=== PATIENT | female | born 1985 | race Caucasian/White ===

== ENCOUNTER 2021-06-25 10:05 | Outpatient (CLI) | payer OTHER, SELFPAY | END 2021-06-25 23:59 | disposition home or self-care (01) | PROVIDERS: Referring Provider Physician Assistant; Visit Provider Physician Assistant | DX: J02.9 Acute pharyngitis, unspecified (principal) | CPT/HCPCS: 87081 ==

== ENCOUNTER → 2023-01-10 | Outpatient (CLI) | payer OTHER, SELFPAY | END | disposition home or self-care (01) | LOC: LABSPEC 16:51 | PROVIDERS: Referring Provider Physician Assistant; Visit Provider Physician Assistant | DX: R39.9 Unspecified symptoms and signs involving the genitourinary system (principal) | CPT/HCPCS: 87086; 87088 ==

== ENCOUNTER → 2023-12-04 | Outpatient (CLI) | payer OTHER, SELFPAY | END | disposition home or self-care (01) | LOC: LABSPEC 17:40 | PROVIDERS: Visit Provider Physician Assistant | DX: J02.0 Streptococcal pharyngitis (principal) | CPT/HCPCS: 87070; 87077; 87186 ==